=== PATIENT | female | born 1955 | race Caucasian/White ===

== ENCOUNTER 2023-01-30 05:17 | Observation (INO) ==
--- NOTE | 2023-01-11 10:45 | PAT Medication Instructions ---
Medication Instructions Date of Service January 11, 2023 Home Medications cholecalciferol (vitamin D3) 50 mcg (2,000 unit) capsule (Vitamin D3) 50 mcg PO QAM hydrochlorothiazide 25 mg tablet 25 mg PO QAM lactobacillus combination no.4 3 billion cell capsule (Probiotic) 3,000 mmu cells PO HS levothyroxine 200 mcg tablet (Synthroid) 200 mcg PO QAM lisinopril 5 mg tablet 5 mg PO QAM acetaminophen 650 mg tablet,extended release 650 mg PO Q8H PRN amoxicillin 875 mg-potassium clavulanate 125 mg tablet 1 tab PO BID ascorbic acid (vitamin C) 1,000 mg tablet (Vitamin C) 1 g PO QAM cetirizine 5 mg-pseudoephedrine ER 120 mg tablet,extended release,12hr (Zyrtec- D) 1 tab PO Q12H PRN docusate sodium 100 mg capsule (Stool Softener) 100 mg PO BID [id number] 8 mg-folic 400 mcg-K 50 mcg-lutein 300 mcg tablet (Centrum Silver Women) 1 tab PO QAM naproxen sodium 220 mg capsule 440 mg PO Q12H PRN sennosides 8.6 mg capsule (senna) 8.6 mg PO DAILY ASK your surgeon for instructions naproxen sodium 220 mg capsule 440 mg PO Q12H PRN DO NOT take the morning of surgery cholecalciferol (vitamin D3) 50 mcg (2,000 unit) capsule (Vitamin D3) 50 mcg PO QAM hydrochlorothiazide 25 mg tablet 25 mg PO QAM lisinopril 5 mg tablet 5 mg PO QAM ascorbic acid (vitamin C) 1,000 mg tablet (Vitamin C) 1 g PO QAM cetirizine 5 mg-pseudoephedrine ER 120 mg tablet,extended release,12hr (Zyrtec- D) 1 tab PO Q12H PRN docusate sodium 100 mg capsule (Stool Softener) 100 mg PO BID [id number] 8 mg-folic 400 mcg-K 50 mcg-lutein 300 mcg tablet (Centrum Silver Women) 1 tab PO QAM sennosides 8.6 mg capsule (senna) 8.6 mg PO DAILY Take morning of surgery With a small sip of water, OTHERWISE NOTHING TO EAT OR DRINK AFTER MIDNIGHT: levothyroxine 200 mcg tablet (Synthroid) 200 mcg PO QAM acetaminophen 650 mg tablet,extended release 650 mg PO Q8H PRN(if needed) amoxicillin 875 mg-potassium clavulanate 125 mg tablet 1 tab PO BID Take evening before surgery lactobacillus combination no.4 3 billion cell capsule (Probiotic) 3,000 mmu cells PO HS acetaminophen 650 mg tablet,extended release 650 mg PO Q8H PRN(if needed) amoxicillin 875 mg-potassium clavulanate 125 mg tablet 1 tab PO BID cetirizine 5 mg-pseudoephedrine ER 120 mg tablet,extended release,12hr (Zyrtec- D) 1 tab PO Q12H PRN(if needed) docusate sodium 100 mg capsule (Stool Softener) 100 mg PO BID Other Notes If you have any questions please call us at [phone] or [phone] or [phone] or [phone]
--- NOTE | 2023-01-16 11:53 | Anesthesiology Consultation ---
Date of Service January 16, 2023 Assessment & Plan (1) Encounter for pre-operative examination: - Check BSG AM DOS - COVID screening: Per assessment on 01/16/23: No known COVID-19 positive contacts or current COVID-19 related symptoms (chronic sinus issues stable). No recent Covid positive test result. - Outpatient joint assessment: Pt currently scheduled for inpatient pathway. If surgeon requests review for outpatient joint pathway, patient is not recommended candidate for outpatient joint program from anesthesia standpoint pending surgeon's office assessment that patient is motivated, has good support and completes Same Day Joint Program preop requirements. -Cardiology visit (02/10/22): Done prior to 02/22/22 Left TKA done at [facility]: " Pulse 115.. The results of her EKG and subsequent echocardiogram were reviewed with the patient and her at great length today. She was counseled I would place her as a low risk for any adverse perioperative cardiovascular event with the risk being approximately less than 1%. No further cardiac testing intervention would further lower that risk. They both state that they understand, they are accepting of that risk and wished to proceed with surgery. So I see no need to delay from a cardiac standpoint. No cardiac follow-up will be scheduled today but she is welcome return to see us in the future should the need arise." - S/P Left TKA (02/22/22): SAB at L3/4 x1 attempt + PNB at [facility] - S/P hysteroscopy, D&C, removal polyps (06/30/22): LMA at [facility] - RUE limb restriction s/p right breast mastectomy - [facility] General surgery (01/08/23): "Surgery:12/19/2022Mastectomy Simple Complete - Right, Biopsy Lymph Node Deep Axillary Open - Right, and Sentinal Lymph Node Identification, Intraop - Right.. The incision is healing well. The edges seem to be healing without sequelae.. There is no evidence of infection. There is a small central seroma which patient reports has not increased over the last several days. Drain was removed without difficulty.. The patient is concerned about her incision and developing infection. She reports there is little to no output from the drain. The last couple of days have been 5 mL in 24 hours. The drain output has been serosanguineous without evidence of infection. The patient also had concerns about knee pain but reports that her knee looks normal. She is concerned about that left total knee replacement becoming infected. She was therefore placed on Augmentin over the weekend. She has no fever, chills or fatigue or any other complaints consistent with infection." > Patient feeling well after completion of abx. She states she has made surgeon's office aware of the above* Chart Review Chart Review: Acceptable Risk for Surgery and Patient seen in Pre Admission Testing Teaching & Discussion Pre-Anesthesia Teaching/Discussion Notes: Instructed NPO after midnight before surgery,except medications with 15 cc of water. Medication instructions provided according to the PAT guidelines. History Surgery Operation Date: 01/30/23 07:15 Proposed Procedures p Right Total Knee Arthroplasty - Kale Pendleton DO Height/Weight Height: 5 ft 3 in Weight: 114.6 kg Allergies Allergy/AdvReac Type Severity Reaction Status Date / Time sulfamethoxazole Allergy Unknown Hives Verified 01/10/23 15:27 [From Bactrim] trimethoprim [From Bactrim] Allergy Unknown Hives Verified 01/10/23 15:27 doxycycline Allergy Rash Verified 01/10/23 15:27 cefuroxime AdvReac Gastrointestinal Verified 01/10/23 15:27 Upset cephalexin AdvReac Diarrhea Verified 01/10/23 15:27 levofloxacin [From Levaquin] AdvReac Worsening Verified 01/10/23 15:27 Joint Pain Medications Home Medications Medication Instructions Recorded Confirmed Last Taken cholecalciferol (vitamin D3) 50 50 mcg PO QAM 02/08/22 01/10/23 06/02/22 12:00 mcg (2,000 unit) capsule (Vitamin D3) hydrochlorothiazide 25 mg tablet 25 mg PO QAM 02/08/22 01/10/23 06/29/22 11:00 lactobacillus combination no.4 3 3,000 mmu cells PO HS 02/08/22 01/10/23 06/28/22 23:55 billion cell capsule (Probiotic) levothyroxine 200 mcg tablet 200 mcg PO QAM 02/08/22 01/10/23 06/29/22 11:00 (Synthroid) lisinopril 5 mg tablet 5 mg PO QAM 02/08/22 01/10/23 06/29/22 11:00 acetaminophen 650 mg 650 mg PO Q8H PRN Pain 01/10/23 01/10/23 Unknown tablet,extended release amoxicillin 875 mg-potassium 1 tab PO BID 01/10/23 01/10/23 Unknown clavulanate 125 mg tablet ascorbic acid (vitamin C) 1,000 mg 1 g PO QAM 01/10/23 01/10/23 Unknown tablet (Vitamin C) cetirizine 5 mg-pseudoephedrine ER 1 tab PO Q12H PRN Allergy Symptoms 01/10/23 01/10/23 Unknown 120 mg tablet,extended release,12hr (Zyrtec-D) docusate sodium 100 mg capsule 100 mg PO BID 01/10/23 01/10/23 Unknown (Stool Softener) yfbcirfr-vsqc-npzx 8 mg-folic 400 1 tab PO QAM 01/10/23 01/10/23 Unknown mcg-K 50 mcg-lutein 300 mcg tablet (Centrum Silver Women) naproxen sodium 220 mg capsule 440 mg PO Q12H PRN Pain 01/10/23 01/10/23 Unknown sennosides 8.6 mg capsule (senna) 8.6 mg PO DAILY 01/10/23 01/10/23 Unknown Past Medical History Medical History Chronic sinusitis Dry eye Chronic - takes Restasis PRN History of Tolbert's palsy 7 years ago, resolved History of sciatica Hx of breast cancer Dx 10/2022, s/p right breast mastectomy with SNL 11/2022 Hx of cancer of uterus Dx 06/2022, s/p hysterectomy + BSO 08/2022 Hypertension Hypothyroid Limb alert care status RUE Morbid obesity Osteoarthritis Plaque psoriasis Prediabetes HgbA1C 6.0% 05/2022; diet controlled Rheumatoid arthritis Follows currently with PCP Sinus tachycardia "Well controlled"/no recent issues Exercise / Class Metabolic Activity III < 4 Walking/Shop/Light housework Past Family History Family History Son Family history of diabetes mellitus Father Lung cancer Denies family history of Ovarian cancer Prostate cancer Breast cancer Colorectal cancer Past Surgical History Surgical History History of anesthesia reaction "Able to feel tugging" during first cataract surgery, no issue with subsequent cataract surgery History of arthroscopy of left knee History of arthroscopy of right knee History of dilatation and curettage 06/30/22 History of left cataract surgery History of left knee replacement Left TKA (02/22/22): SAB at L3/4 x1 attempt + PNB at [facility] History of right cataract surgery Hx of mastectomy 12/19/22, right breast w/SNL Hx of total hysterectomy with removal of both tubes and ovaries 09/19/22 Past Anesthesia History No Family Hx of Anesthesia Complications and Other ("Able to feel tugging" during first cataract surgery, no issue with subsequent cataract surgery) History of PONV No Hx of PONV and No Hx of Motion Sickness Social History Smoking Status: Never smoker Do You Dip or Chew Tobacco: No Hx Alcohol Use: Yes alcohol intake frequency: holidays/special occasions only Hx Substance Use: No substance use type: does not use Review of Systems Completed antibiotics for recently for right breast mastectomy incision site (S surgeon)- advised to monitor/nothing further needed per surgeon. Chronic sinus issues/drainage with occasional cough r/t to this- no recent changes/stable. Patient denies chest pain, shortness of breath, dyspnea on exertion, fever, chills, wheezing, palpitations. Physical Exam Vital Signs VITALS BP 139/89 P 91 TEMP 98.0 SP02 94%RA RESP 16 PHYSICAL Full cervical extension range of motion. Full TMJ range of motion. TMD 3 finger breaths Mallampati Score 2 Dentition: missing sides Lungs: clear throughout to auscultation Cardiac: regular rate and rhythm, no murmurs noted Spine: normal Carotid arteries: negative bruit Extremities: no LE edema Lab Results Anesthesia Preop Results Results Anesthesia Widget: WBC 5.84 K/ul (4.8-10.8) 01/16/23 Hgb 13.3 g/dl (12.0-16.0) 01/16/23 Hct 40.7 % (37.0-47.0) 01/16/23 Plt 234 K/uL (130-400) 01/16/23 PT 10.8 Seconds (9.0-12.0) 01/16/23 PTT 25.9 Seconds (21.0-31.0) 01/16/23 INR 1.0 (0.9-1.1) 01/16/23 HA1c 6.1 % (4.5-5.6) H 01/16/23 Urine Color Yellow 01/16/23 Urine Appearance Clear (Clear) 01/16/23 Urine pH 7.5 (4.5-7.5) 01/16/23 Urine Specific [place] 1.014 (1.000-1.030) 01/16/23 Urine Protein Negative (Negative) 01/16/23 Urine Glucose (UA) Negative (Negative) 01/16/23 Urine Ketones Negative (Negative) 01/16/23 Urine Blood Negative (Negative) 01/16/23 Urine Nitrite Negative (Negative) 01/16/23 Urine Bilirubin Negative (Negative) 01/16/23 Urine Urobilinogen Negative (Negative) 01/16/23 Urine Leukocyte Esterase Negative (Negative) 01/16/23 Blood Type O Positive 01/16/23 Antibody Screen NEGATIVE 01/16/23 Testing Laboratory Results 12/20/22 SODIUM 141 POTASSIUM 4.3 CHLORIDE 101 CO2 30 BUN 12 CREATININE 0.7 GLUCOSE 153 Electrocardiogram Date: 01/16/23 NSR at 97bpm. Chest X-Ray Date: 02/10/22 Findings: + NAD FINDINGS: Cardiomediastinal and hilar silhouettes are within normal limits. Mild right hemidiaphragmatic elevation. No pneumothorax, pleural effusion, airspace consolidation or overt pulmonary edema. Degenerative changes of the shoulders and spine. Echocardiogram Date: 02/10/22 LVEF 59%. No RWMA. Mild cLVH. Grade I DD. No significant valvular disease. Cervical Spine Date: 06/20/22 FINDINGS: No fracture or subluxation. Alignment remains intact throughout flexion and extension. The C1-C2 interval and prevertebral soft tissues are within normal limits. There are large anterior osteophytes from C3 through C6. Severe disc space narrowing at C6-C7. Mild to moderate disc space narrowing at C5-C6. Moderate facet degenerative changes within the cervical spine. IMPRESSION: 1. Alignment remains intact throughout flexion and extension. 2. Degenerative changes Other Testing US Head/neck Date: 02/14/22 Small, hypovascular, heterogeneous thyroid without nodule.
--- NOTE | 2023-01-17 11:42 | History & Physical Report ---
Date of Service January 17, 2023 date of surgery: 01/30/23 procedure: Right Total Knee Arthroplasty Surgeon: Kale Pendleton Assessment & Plan (1) Arthritis of right knee: Plan: Risk and benefits of the procedure were discussed in detail she has like to proceed with surgical invention. Plan be right total knee arthroplasty, will place on aspirin 81 mg twice a day for 1 month postop DVT prophylaxis. We will plan on discharge home with home health physical therapy, follow-up in the office 2 weeks after surgery or sooner if she is having any issues. She otherwise has no other questions or concerns The risks and benefits have been discussed including, but not limited to, risk of infection, nerve injury, stiffness, loss of motion, failure to improve, etc. Reasonable outcomes and options of treatment were discussed. An explanation of appropriate alternatives to the procedure that may be advantageous were discussed and their risks and benefits, as well as the risks and benefits of not proceeding with treatment. I offered to answer any additional inquiries concerning the treatment involved. All the patient's questions were answered. The patient is agreeable, understanding of the treatment plan and alternatives, and wishes to proceed with the treatment plan. History of Present Illness Chief Complaint: Right knee pain Primary Care Provider: aTmmi Maher MD Cristiana is a pleasant 67-year-old female who presented for preop evaluation prior to right total knee replacement. She has longstanding history of right knee pain which is now affecting her daily activities including walking standing using stairs. She has a history of left total knee arthroplasty and is doing well. She undergone previous injections, she believes cortisone as well as viscosupplementation, she tried oral anti-inflammatories and Tylenol as well. At this point time she would like to proceed with a right total knee arthroplasty Allergies Allergy/AdvReac Type Severity Reaction Status Date / Time sulfamethoxazole Allergy Unknown Hives Verified 01/10/23 15:27 [From Bactrim] trimethoprim [From Bactrim] Allergy Unknown Hives Verified 01/10/23 15:27 doxycycline Allergy Rash Verified 01/10/23 15:27 cefuroxime AdvReac Gastrointestinal Verified 01/10/23 15:27 Upset cephalexin AdvReac Diarrhea Verified 01/10/23 15:27 levofloxacin [From Levaquin] AdvReac Worsening Verified 01/10/23 15:27 Joint Pain Home Medications Medication Instructions Recorded Confirmed Type cholecalciferol (vitamin D3) 50 50 mcg PO QAM 02/08/22 01/10/23 History mcg (2,000 unit) capsule (Vitamin D3) hydrochlorothiazide 25 mg tablet 25 mg PO QAM 02/08/22 01/10/23 History lactobacillus combination no.4 3 3,000 mmu cells PO HS 02/08/22 01/10/23 History billion cell capsule (Probiotic) levothyroxine 200 mcg tablet 200 mcg PO QAM 02/08/22 01/10/23 History (Synthroid) lisinopril 5 mg tablet 5 mg PO QAM 02/08/22 01/10/23 History acetaminophen 650 mg 650 mg PO Q8H PRN Pain 01/10/23 01/10/23 History tablet,extended release amoxicillin 875 mg-potassium 1 tab PO BID 01/10/23 01/10/23 History clavulanate 125 mg tablet ascorbic acid (vitamin C) 1,000 mg 1 g PO QAM 01/10/23 01/10/23 History tablet (Vitamin C) cetirizine 5 mg-pseudoephedrine ER 1 tab PO Q12H PRN Allergy Symptoms 01/10/23 01/10/23 History 120 mg tablet,extended release,12hr (Zyrtec-D) docusate sodium 100 mg capsule 100 mg PO BID 01/10/23 01/10/23 History (Stool Softener) labzwfsv-hice-kkju 8 mg-folic 400 1 tab PO QAM 01/10/23 01/10/23 History mcg-K 50 mcg-lutein 300 mcg tablet (Centrum Silver Women) naproxen sodium 220 mg capsule 440 mg PO Q12H PRN Pain 01/10/23 01/10/23 History sennosides 8.6 mg capsule (senna) 8.6 mg PO DAILY 01/10/23 01/10/23 History Past Med/Surg History Medical History Chronic sinusitis Dry eye Chronic - takes Restasis PRN History of Tolbert's palsy 7 years ago, resolved History of sciatica Hx of breast cancer Dx 10/2022, s/p right breast mastectomy with SNL 11/2022 Hx of cancer of uterus Dx 06/2022, s/p hysterectomy + BSO 08/2022 Hypertension Hypothyroid Limb alert care status RUE Morbid obesity Osteoarthritis Plaque psoriasis Prediabetes HgbA1C 6.0% 05/2022; diet controlled Rheumatoid arthritis Follows currently with PCP Sinus tachycardia "Well controlled"/no recent issues Surgical History History of anesthesia reaction "Able to feel tugging" during first cataract surgery, no issue with subsequent cataract surgery History of arthroscopy of left knee History of arthroscopy of right knee History of dilatation and curettage 06/30/22 History of left cataract surgery History of left knee replacement Left TKA (02/22/22): SAB at L3/4 x1 attempt + PNB at [facility] [place] History of right cataract surgery Hx of mastectomy 12/19/22, right breast w/SNL Hx of total hysterectomy with removal of both tubes and ovaries 09/19/22 Family History Son Family history of diabetes mellitus Father Lung cancer Denies family history of Ovarian cancer Prostate cancer Breast cancer Colorectal cancer Social History Smoking Status: Never smoker Second Hand Exposure: Yes (hx as child); Do You Dip or Chew Tobacco: No; Hx Alcohol Use: Yes Hx Substance Use: No Preferred Language: Arabic Communication Ability: Effective Family Service Caseworker Required: No Beliefs That Will Affect Care: None marital status: Current Living Situation: Spouse Feels Safe at Home: Yes Assistive Devices: Glasses Review of Systems Review of Systems: All systems reviewed & are unremarkable except as noted in HPI & below Constitutional: no fever, no chills and no sweats Respiratory: no cough and no dyspnea Cardiovascular: no chest pain, no dyspnea and no orthopnea Gastrointestinal: no abdominal pain, no nausea and no vomiting Musculoskeletal: as per Subjective / HPI Physical Exam Physical Exam: HT: 5ft 3in WT: 114.6 kg Constitutional: WD/WN, vitals as above no acute distress Respiratory: normal respiratory effort, lungs clear to auscultation no respiratory distress, no labored breathing and does not use accessory muscles Cardiovascular: RRR, no murmur, no edema Gastrointestinal (Abdomen): normal bowel sounds, soft, nontender, no hepatosplenomegaly Musculoskeletal: Knee: + knee abnormal to inspection (RIGHT KNEE:), + effusion (+1 effusion), + limited ROM of knee (ROM 0/3/110), + knee ROM with crepitation, + joint line tenderness (medial joint line) and + Segundo's sign positive; no deformity, no skin erythema, no ecchymosis, no valgus laxity, no varus laxity, anterior drawer test negative, Bo's sign negative and pivot shift test negative Results & Data Results & Data Diagnostic Findings Right Knee X-ray: Right knee series showing advanced degenerative changes to the right knee, narrowing of the medial compartment and patello-femoral joint with patellar spurring noted, findings showing joint space narrowing of the medial compartment and patello-femoral joint, osteophyte formation and subchondral sclerosis noted. overall varus alignment. no acute bony pathology noted.
[2023-01-30] MEDS ORDERED: CeleBREX 200 MG CAP PO SCH (06:00)
[2023-01-30] MEDS ORDERED: ROPIVACAINE 0.5% HCL/PF 150 MG, BUPIVACAINE 0.75% MPF 20 ML, EPINEPHrine 30MG/30ML (OR ... INSTIL SCH (06:00)
[2023-01-30] MEDS ORDERED: ceFAZolin 2000MG 2,000 MG/15 ML SYR IV SCH (06:00)
[2023-01-30] MEDS ORDERED: LR 60ML/HR IV SCH (06:00)
[2023-01-30] MEDS ORDERED: dexAMETHasone 4 MG TAB PO SCH (06:00)
[2023-01-30] MEDS ORDERED: TRANEXAMIC ACID 1,000 MG **IV Pre-op IV SCH (06:00)
[2023-01-30] MEDS ORDERED: METOCLOPRAMIDE HCL 10 MG TABLET PO SCH (06:00)
[2023-01-30] MEDS ORDERED: FAMOTIDINE 20 MG TAB PO SCH (06:00)
[2023-01-30] MEDS ORDERED: LR 500ML BOLUS, THEN 15ML/HR IV SCH (06:00)
[2023-01-30] MEDS ORDERED: TRANEXAMIC ACID 1,000 MG **IV Intra-op IV SCH (06:00)
[2023-01-30] MEDS ORDERED: ACETAMINOPHEN 500 MG TAB PO SCH (06:00)
[2023-01-30] MEDS ORDERED: GABAPENTIN 300 MG CAP PO SCH (06:00)
[2023-01-30] MEDS ORDERED: BUPIVACAINE 0.5 % 5 MG/1 ML PF 10ML VIAL ONE (06:22)
[2023-01-30] MEDS ORDERED: ROPIVACAINE 0.5% 5 MG/ML 30 ML VIAL ONE (06:22)
[2023-01-30] MEDS ORDERED: LIDOCAINE 2% 2 ML VIAL/AMP(20MG/ML) INFIL ONE (06:32)
[2023-01-30] MEDS ORDERED: MIDAZOLAM HCL 1 MG/ML 2ML VIAL ONE ×2 (06:32)
[2023-01-30] MEDS ORDERED: PROPOFOL IV EMULSION 10 MG/ML 20 ML VIAL IV ONE (06:32)
[2023-01-30] MEDS ORDERED: ATROPINE SULFATE 0.1 MG/ML 10ML SYR IV PRN (06:38)
[2023-01-30] MEDS ORDERED: fentaNYL citrate PF 100 MCG/2 ML VIAL IV PRN (06:38)
[2023-01-30] MEDS ORDERED: ePHEDrine sulfate 50 MG/ML AMP IV PRN (06:38)
[2023-01-30] MEDS ORDERED: ONDANSETRON INJ 2 MG/ML 2 ML VIAL IV PRN ×2 (06:38→10:27)
[2023-01-30] MEDS ORDERED: ORTHO JOINT ANESTHETIC ONE (06:39)
--- NOTE | 2023-01-30 07:26 | History & Physical Bridge Note ---
Date of Service January 30, 2023 History & Physical Bridge Note I have examined the patient, reviewed the History & Physical and in the interval since the performance of the History & Physical I have noted the following changes of clinical significance: no changes noted
[2023-01-30] MEDS ORDERED: KETAMINE 50 MG/5 ML SYRINGE ONE (07:57)
--- NOTE | 2023-01-30 08:51 | Operative Report ---
Post Operative Report Pre & Post Diagnosis Operation Date: 01/30/23 07:00 Pre-Op Diagnosis: Osteoarthritis Knee Right Post-Op Diagnosis: Osteoarthritis Knee Right I identified the patient and participated in the time-out.: Yes Procedure Operation Date: 01/30/23 07:00 Actual Procedures p Right Total Knee Arthroplasty(Right) utilizing \6 [employer]me[employer] Neph[employer]Household journey 2 patient-matched total knee arthroplasty size femur 4 tibia 3 patella 10 poly 10 patella 29 nasima Pendleton DO Surgeon Kale Pendleton DO Family Partner wolfgang Montano Estimated Blood Loss 5 Findings Consistent with Post-Op Diagnosis Patient presents with severe end-stage tricompartmental degenerative joint disease eburnated [id number] marginal osteophytes varus alignment subchondral sclerosis moderate to large effusion Specimens Bone and cartilage Drains Medium bore Hemovac Anesthesia Type MAC Spinal Regional Complications none Disposition Accompanied Patient To Recovery: No Disposition: Recovery Room Indications Patient patient presents with severe end-stage DJD having failed attempted conservative management occluding physical therapy anti-inflammatories relative rest activity modification corticosteroid injection viscosupplementation the above intraoperative findings were noted Description of Procedure After proper prepping and draping of the Right lower extremity anterior midline incision was made over the region of the extensor extensor mechanism after meticulous hemostasis was obtained and maintained in subcutaneous tissues a medial parapatellar incision was made The patella was subluxed lateralward the medial lateral gutter were cleaned from any hypertrophic synovitis and scar tissue of the distal femoral block was placed and the distal femoral osteotomy cut was made subsequently the chamfers anterior and posterior osteotomy cuts were made utilizing the 4-in-1 block the tibia was subsequently subluxed anteriorward medial and ateral meniscal remnants were excised in their entirety remnants of the anterior and posterior cruciate ligaments were excised in their entirety excellent exposure of the proximal tibia was obtained the tibial osteotomy guide was placed on the proximal tibial osteotomy cut was made once again the knee was irrigated with copious amounts of sterile saline solution the patella was subsequently everted lateralward thickened scar tissue around the patella was removed the patella was subsequently cut utilizing a freehand technique and was drilled prepared for final preparation and placement of patella socially flexion-extension gaps were checked and the equal and symmetric trials were placed to the appropriate femoral and tibial trials with poly-spacer being placed for equal flexion and extension gaps and full range of motion including extension to 0 and flexion to 140 the trial components after having been taken to recovery range of motion was subsequently removed meticulous hemostasis was obtained and maintained subsequently a knee block injection of joint cocktail including ropivacaine 0.5% 150 mg. Bupivacaine 0.5% epinephrine 1-200,030 mL's toradol 30 mg dexamethasone 4 mg ketamine 10 mg clonidine 100 micrograms normal saline solution 30 mg was infiltrated into the soft tissues of the posterior knee medial lateral gutters and periosteal synovium special attention was paid to protect neurovascular structures at all times subsequently trial components having been removed the knee was irrigated with sterile saline solution. debris was removed the proximal tibia was subsequently prepared and was made ready for the placement of the tibial component tibial component was also cemented and tamped into position the femoral component was subsequently placed and cemented in the position the patellar component was subsequently cemented in position because hemostasis once again obtained and maintained wound having been thoroughly irrigated with debridement and debridement lavage was performed as well as a medial parapatellar incision closed with #1 Vicryl in interrupted fashion subcutaneous was closed with #2 Vicryl skin was closed with skin clips. PA-C was necessary for prepping and drapping as well as wound closure of deep fascia Sub cutaneous tissue and skin and was necessary for the case. A sterile compressive dressing was placed patient was taken to recovery in stable condition of report dictated by Helder I attest to the content of the Intraoperative Record and any orders documented therein. Any exceptions are noted below.Due to the complex nature of the procedure, the entire surgery was performed with the operational assistance of Wolfgang ALATORRE. The clinic office assistant, under direct supervision, was involved in the actual performance of all aspects of the surgical procedure including hemostasis, tissue retraction and incision, instrument management, patient positioning, and wound closure. I attest to the content of the Intraoperative Record and any orders documented therein. Any exceptions are noted below.
--- NOTE | 2023-01-30 10:02 | XRay Report ---
XR knee RT 1 or 2V routine HISTORY: 67 years-old Female Surgical Post Op right knee arthroplasty COMPARISON: None TECHNIQUE: 2 views of the right knee FINDINGS: Total joint arthroplasty with patellar resurfacing. Surgical drainage catheter is in place along with expected postoperative soft tissue swelling with deep tissue air. No acute fracture or unexpected op aque foreign body. IMPRESSION: Total joint arthroplasty with expected postoperative changes. ACT 112: Negative or not required by law. The above report was generated using voice recognition software. It may contain grammatical, syntax o r spelling errors. Electronically signed by: Jarad Christianson M.D. 01/30/2023 10:01 AM
--- NOTE | 2023-01-30 10:22 | Anesthesiology Progress Note ---
Date of Service January 30, 2023 Anesthesia Post Procedure Vital Signs Vital Signs: Temp Pulse Pulse Resp BP Pulse Ox O2 Del Method 01/30/23 09:50 111 H 14 165/99 H 94 Nasal Cannula 01/30/23 09:40 104 H 14 152/91 H 97 Nasal Cannula 01/30/23 10:00 97.7 F 105 H 14 135/81 94 Nasal Cannula 01/30/23 09:35 157/86 H 01/30/23 09:30 107 H 14 168/84 H 97 Oxymask 01/30/23 09:20 97.9 F 119 H 16 144/68 H 96 Oxymask 01/30/23 05:40 97.5 F L 128 H 20 177/95 H 93 Room Air O2 Flow Rate 01/30/23 09:50 2 01/30/23 09:40 3 01/30/23 10:00 2 01/30/23 09:35 01/30/23 09:30 12 01/30/23 09:20 12 01/30/23 05:40 Transfer of Care Handoff Completed per policy Notes Mental Status: alert / awake / arousable and participated in evaluation Patient Amnestic to Procedure: Yes Nausea / Vomiting: adequately controlled Pain: adequately controlled Airway Patency, RR, SpO2: stable & adequate BP & HR: stable & adequate Hydration State: stable & adequate Neuraxial Anesthesia: was administered and sensory block is resolving Anesthetic Complications: no major complications apparent and Pt Satisfied with anesthetic care
[2023-01-30] MEDS ORDERED: MAGNESIUM HYDROXIDE SUSP 30 ML UDC PO PRN (10:27)
[2023-01-30] MEDS ORDERED: bisacodyL 10 MG SUPP PR PRN (10:27)
[2023-01-30] MEDS ORDERED: CETIRIZINE PSEUDOEPHEDRINE PO PRN (10:27)
[2023-01-30] MEDS ORDERED: NALOXONE HCL 0.4 MG/1 ML VIAL/CARP IV PRN (10:27)
[2023-01-30] MEDS ORDERED: HYDROmorphone INJ 0.5 MG/0.5 ML SYR IV PRN (10:27)
[2023-01-30] MEDS ORDERED: diphenhydrAMINE 50 MG/ML VIAL IV PRN (10:27)
[2023-01-30] MEDS: SODIUM CHLORIDE 0.9% 1,000 ML IV SCH (11:01)
[2023-01-30] MEDS: KETOROLAC TROMETHAMINE 15 MG/ML VIAL IV SCH ×2 (11:02→17:04)
[2023-01-30] MEDS: ACETAMINOPHEN 500 MG TAB PO SCH ×2 (13:37→21:19)
[2023-01-30] MEDS: oxyCODONE HCL IR 5 MG TAB (IMMEDIATE RELEASE) PO PRN ×2 (14:22→20:55)
[2023-01-30] MEDS: ceFAZolin 2000MG 2,000 MG/15 ML SYR IV SCH (15:05)
[2023-01-30] MEDS: ASPIRIN 81 MG ECTAB PO SCH (20:55)
[2023-01-30] MEDS: DOCUSATE SODIUM 100 MG CAP PO SCH (20:57)
[2023-01-30] MEDS ORDERED: ADVANCED PROBIOTIC 1250 MG CAPSULE PO SCH (21:00)
[2023-01-30] MEDS ORDERED: SENNA 8.6 MG TAB PO SCH (21:00)
[2023-01-31] MEDS: KETOROLAC TROMETHAMINE 15 MG/ML VIAL IV SCH ×2 (00:49→06:33)
[2023-01-31] MEDS: ceFAZolin 2000MG 2,000 MG/15 ML SYR IV SCH (00:51)
[2023-01-31] MEDS: SODIUM CHLORIDE 0.9% 1,000 ML IV SCH (01:58)
[2023-01-31] MEDS ORDERED: Nursing to Pharmacy Communication SCH (02:00)
[2023-01-31] MEDS: oxyCODONE HCL IR 5 MG TAB (IMMEDIATE RELEASE) PO PRN ×3 (02:51→12:06)
[2023-01-31] MEDS: ACETAMINOPHEN 500 MG TAB PO SCH (05:53)
[2023-01-31] MEDS ORDERED: LEVOTHYROXINE SODIUM 200 MCG TABLET PO SCH (06:30)
--- NOTE | 2023-01-31 06:58 | Orthopedic Progress Note ---
Date of Service January 31, 2023 Assessment & Plan (1) Arthritis of right knee: Plan: Postop day 1 status post right total knee arthroplasty PT/OT protocols. Weightbearing as tolerated. DVT prophylaxis-aspirin p.o. twice daily, SCDs, STEPHANIE harry. Pain management as written. Tachycardia-likely secondary to whitecoat syndrome of which she has had previously. If her heart rate continues to maintain in the 120s or 130s, consider hospitalist consult. Patient states that her heart rate usually tends to start coming down after her surgery. Labs pending. DC planning-patient is planning for home health services upon discharge. We will likely plan to send her home with her drain and have home health services remove drain tomorrow. We will review labs when available. We will have to follow her vital signs for now and plan discharge to home if remaining stable today. Admission and Anticipated Discharge Date Admission Date: January 30, 2023 Subjective Postop day 1 Patient sitting up in bed awake and alert. No complaints this morning. She states she feels well. Pain is controlled. Denies shortness of breath, chest pain, lightheadedness. We discussed that she has been somewhat tachycardic during her whole stay. Patient states that she which she describes as white coat syndrome when she goes to the physician's office and or whenever she is having surgery. She has had a complete work-up in the past including EKG and echocardiogram which has been normal. Her normal at home was around 80s to 90s. Currently her heart rate is coming down from where it was previously and it was 105 very early this morning. Physical Exam Physical Exam: Dressings are clean, dry, and intact. Calves are soft nontender. Neurovascular intact. Toes are mobile. She is good dorsiflexion and plantarflexion of the right foot. Hemovac drainage was 150 mL in the previous emptying. Results & Data Vital Signs (Past 12 Hours) Vital Signs Temp Pulse Resp BP Pulse Ox O2 Del Method 01/31/23 02:52 36.7 C 105 H 16 148/85 H 94 Room Air 01/30/23 21:00 Room Air 01/30/23 22:55 36.7 C 104 H 16 122/76 95 Room Air 01/30/23 19:51 36.7 C 125 H 18 136/81 95 Room Air
[2023-01-31] MEDS: ASPIRIN 81 MG ECTAB PO SCH (07:31)
[2023-01-31] MEDS: DOCUSATE SODIUM 100 MG CAP PO SCH (07:31)
[2023-01-31] MEDS ORDERED: ASCORBIC ACID 500 MG TAB PO SCH (09:00)
[2023-01-31] MEDS ORDERED: CHOLECALCIFEROL 1,000 UNITS 25 MCG TAB PO SCH (09:00)
[2023-01-31] MEDS ORDERED: lisinopril 5 MG TAB PO SCH (09:00)
[2023-01-31] MEDS ORDERED: MULTIVITAMIN TAB PO SCH (09:00)
[2023-01-31] MEDS ORDERED: hydroCHLOROthiazide 25 MG TAB PO SCH (09:00)
[2023-01-31 09:11] LABS: BUN Creatinine Ratio 25.3 (10-20); Calcium 8.9 mg/dl (8.6-10.3); Est GFR (African American) 85.2 ml/min; Est GFR (Non-African American) 73.5 ml/min; Potassium 3.8 mmol/L (3.5-5.1)
[2023-01-31 09:19] LABS: Hemoglobin 12.4 g/dl (12.0-16.0); Mean Corpuscular Hemoglobin 25.4 pg (25.0-34.0); Mean Corpuscular Hgb Conc 32.6 g/dL (32.0-36.0); Mean Corpuscular Volume 77.7 fL (80.0-100.0); Mean Platelet Volume 9.7 fL (9.4-12.4); Platelet Count 285 K/uL (130-400); RDW Coefficient of Variation 15.4 % (11.5-14.5); RDW Standard Deviation 43.3 fL (36.4-46.3); Red Blood Count 4.89 M/uL (4.20-5.40); White Blood Count 14.83 K/ul (4.8-10.8)
--- NOTE | 2023-02-05 18:51 | Discharge Summary ---
Date of Service February 05, 2023 Admission HPI Per Admitting Provider Cristiana is a pleasant 67-year-old female who presented for preop evaluation prior to right total knee replacement. She has longstanding history of right knee pain which is now affecting her daily activities including walking standing using stairs. She has a history of left total knee arthroplasty and is doing well. She undergone previous injections, she believes cortisone as well as viscosupplementation, she tried oral anti-inflammatories and Tylenol as well. At this point time she would like to proceed with a right total knee arthroplasty Admission Exam Per Admitting Provider Physical Exam: HT: 5ft 3in WT: 114.6 kg Constitutional: WD/WN, vitals as above no acute distress Respiratory: normal respiratory effort, lungs clear to auscultation no respiratory distress, no labored breathing and does not use accessory muscles Cardiovascular: RRR, no murmur, no edema Gastrointestinal (Abdomen): normal bowel sounds, soft, nontender, no hepatosplenomegaly Musculoskeletal: Knee: + knee abnormal to inspection (RIGHT KNEE:), + effusion (+1 effusion), + limited ROM of knee (ROM 0/3/110), + knee ROM with crepitation, + joint line tenderness (medial joint line) and + Segundo's sign positive; no deformity, no skin erythema, no ecchymosis, no valgus laxity, no varus laxity, anterior drawer test negative, Bo's sign negative and pivot shift test negative Principal Diagnosis Right knee osteoarthritis Discharge Data Allergies Allergy/AdvReac Type Severity Reaction Status Date / Time sulfamethoxazole Allergy Unknown Hives Verified 01/30/23 05:38 [From Bactrim] trimethoprim [From Bactrim] Allergy Unknown Hives Verified 01/30/23 05:38 doxycycline Allergy Rash Verified 01/30/23 05:38 cefuroxime AdvReac Gastrointestinal Verified 01/30/23 05:38 Upset cephalexin AdvReac Diarrhea Verified 01/30/23 05:38 levofloxacin [From Levaquin] AdvReac Worsening Verified 01/30/23 05:38 Joint Pain Procedures Performed Operation Date: 01/30/23 07:00 Actual Procedures p Right Total Knee Arthroplasty(Right) - Kale Pendleton DO Ordered Studies 01/30/23 05:00 US - OR guided needle placemen Routine Hospital Course (1) Arthritis of right knee: Patient:CRISTIANA EL Admit Date:01/30/23 MR#:[id number] Att Phy:Kale Pendleton D.O. Acct ID:[id number] Alyssa Phy:Tabatha Sepulveda PA-C Date:1955 Fam Phy: Age:67 Location:3E Sex:F Room/Bed:[facility] cc: ~ *NOTICE TO RECEIVING REPUBLICAN/AGENCY This information is strictly Confidential and protected under [place] law. [place] law prohibits you from making any further disclosure of this information unless further disclosure is expressly permitted by the written consent of the person to whom it pertains or is authorized by law. A general authorization for the release of medical or other information is not sufficient for this purpose. Hospital accepts no responsibility if the information is made available to any other person, INCLUDING THE PATIENT. Date of Service January 31, 2023 Assessment & Plan (1) Arthritis of right knee: Plan: Postop day 1 status post right total knee arthroplasty PT/OT protocols. Weightbearing as tolerated. DVT prophylaxis-aspirin p.o. twice daily, SCDs, STEPHANIE harry. Pain management as written. Tachycardia-likely secondary to whitecoat syndrome of which she has had previously. If her heart rate continues to maintain in the 120s or 130s, consider hospitalist consult. Patient states that her heart rate usually tends to start coming down after her surgery. Labs pending. DC planning-patient is planning for home health services upon discharge. We will likely plan to send her home with her drain and have home health services remove drain tomorrow. We will review labs when available. We will have to follow her vital signs for now and plan discharge to home if remaining stable today. Admission and Anticipated Discharge Date Admission Date: January 30, 2023 Subjective Postop day 1 Patient sitting up in bed awake and alert. No complaints this morning. She states she feels well. Pain is controlled. Denies shortness of breath, chest pain, lightheadedness. We discussed that she has been somewhat tachycardic during her whole stay. Patient states that she which she describes as white coat syndrome when she goes to the physician's office and or whenever she is having surgery. She has had a complete work-up in the past including EKG and echocardiogram which has been normal. Her normal at home was around 80s to 90 s. Currently her heart rate is coming down from where it was previously and it was 105 very early this morning. Physical Exam Physical Exam:M Dressings are clean, dry, and intact. Calves are soft nontender. Neurovascular intact. Toes are mobile. She is good dorsiflexion and plantarflexion of the right foot. Hemovac drainage was 150 mL in the previous emptying. Results & Data Vital Signs (Past 12 Hours) Vital Signs Temp Pulse Resp BP Pulse Ox O2 Del Method C 01/31/23 02:52 36.7 C 105 H 16 148/85 H 94 Room Air 01/30/23 21:00 Room Air 01/30/23 22:55 36.7 C 104 H 16 122/76 95 Room Air 01/30/23 19:51 36.7 C 125 H 18 136/81 95 Room Air Signed By: <Electronically signed by Karl Leger MD> 01/31/23 0705 <Electronically signed by Wolfgang Whitley PA-C> 01/31/23 0657 Total Time Total Time Spent Total Time Spent (In Minutes): 5 Discharge Plan Discharge Items Patient Disposition: Home - Home Health Services Reason For Visit: Osteoarthritis Knee Right Discharge Diagnosis: Osteoarthritis right knee Activity: Per Instructions section Weightbearing: Full weightbearing Non-emergency contact: Surgeon Call non-emergency contact if: you have any medication questions, your pain is not controlled, your temperature is above 101.5, your wound has increased redness and your wound has increased drainage Follow-up/Referrals: Kale Pendleton, [Surgeon] - ( follow-up with Dr. Pendleton in 2 weeks from the day of surgery for your first postoperative appointment.) Tabatha Sepulveda PA-C [Primary Care Provider] - Addtl Attending Provider Instructions: ACTIVITY RECOMMENDATIONS: SELF CARE INSTRUCTIONS AFTER TOTAL KNEE REPLACEMENT A. You may need to continue a physical therapy program after discharge from the hospital. There are several options available to you. Your doctor will assist you in selecting the best one for you. 1. An out-patient facility 2 to 3 times a week for therapy or home therapy. 2. Continue working on all exercises taught to you in the hospital. Your goals should be to increase bending of your knee to 90 degrees and beyond and to fully straighten your knee. B. You may progress at your own pace from walking with a walker or crutches to a cane; then to no assistive devices. C. Make walking a part of your daily routine. Be up as much as comfortable with rest periods throughout the day. Rest with leg elevation is very important. Use the ice wrap frequently for the first 3-4 weeks. D. There are no restrictions on activities. You may ride in a car, shop, participate in shopper and all social activities. E. Wear the long elastic stockings (STEPHANIE hose) 20 hours a day for 2 weeks after surgery. They can be removed several times a day for laundering and for a bath. F. You may shower, no tub baths until cleared by your doctor. SPECIAL CARE INSTRUCTIONS: VERY IMPORTANT TO READ AND REVIEW A. There are a few signs you need to watch for after you are home. Call [facility] if you notice any of the followin. Increased severe knee pain. Some pain is expected especially when you exercise. 2. Increased swelling in your leg or knee; pain or swelling of the calf muscle in either lower leg. 3. Any fluid drainage from the incision. 4. Shortness of breath or chest pain. B. Please call [facility] at if you have any concerns or questions about your operation or recovery. The doctor or his nurse will return your call promptly. C. You must take antibiotics before dental work, bladder, bowel or other s urgery. Your doctor will provide you with a permanent care to carry describing this precaution. IMPORTANT: * REMEMBER TO TAKE ASPIRIN, 81 MG, TWICE DAILY FOR 4 WEEKS UNLESS OTHERWISE DIRECTED. THIS IS YOUR BLOOD THINNER. * CALL IF INCREASED PAIN, REDNESS, DRAINAGE OR FEVER GREATER THAT 101. * WEAR STEPHANIE HOSE 20 HOURS PER DAY FOR 2 WEEKS. * GAYATRI Dressing - This is a large suction dressing covering your incision. This will help pull any excess drainage from the wound and allow your incision to heal properly. You may shower with this if you can keep the unit outside of the shower. If any bleeding or leakage is noted please call your doctor's office. This will remain on your incision for 7 days and then should be removed. This can be done yourself or by the home nursing staff if applicable. The entire unit is disposable once removed. Once removed, keep incision clean and dry. If redness or drainage is noted, please call your surgeon. . Once your gayatri dressing has been removed, follow wound care instructions below. * DERMABOND Prineo- This is a mesh tape dressing that is covered with glue. It should remain in place until the incision is properly healed, usually 10-14 days. This dressing is designed to naturally slough off. You may trim the excess mesh tape as it peels off. Incision may be briefly wet in a shower. Dry immediately by blotting with a clean, dry towel. Do not bath or swim until instructed by your doctor. Do not scratch, rub, or pick at the dressing. Do not apply any topical ointments or lotions until dressing is completely removed and/or instructed by your doctor. There may be a small piece of suture material at one end of your incision. Do not pull or trim this. If it is bothersome or catching on clothing, you may cover it with a band-aid. FOLLOW UP VISIT: If appointment is not already scheduled: Please call [facility] to make a follow-up appointment for 2 weeks after your surgery at . Stand-Alone Forms: My [facility] 4-Tell, Smoking Cessation Medications and DC Order Prescriptions: New aspirin [Ecotrin Low Strength] 81 mg tablet,delayed release (DR/EC) 81 mg PO BID 30 Days Qty: 60 0RF acetaminophen 500 mg capsule 1,000 mg PO Q8H 14 Days Qty: 84 0RF polyethylene glycol 3350 [Miralax] 17 gram powder in packet 17 g PO DAILY PRN (Reason: constipation) Qty: 5 0RF oxycodone 5 mg tablet 5 mg PO Q4H MDD 6 PRN (Reason: pain) Qty: 30 0RF Continued cetirizine-pseudoephedrine [Zyrtec-D] 5-120 mg Tablet Extended Release 12 Hr 1 tab PO Q12H PRN (Reason: Allergy Symptoms) ascorbic acid (vitamin C) [Vitamin C] 1,000 mg Tablet 1 g PO QAM docusate sodium [Stool Softener] 100 mg Capsule 100 mg PO BID senna 8.6 mg Capsule 8.6 mg PO DAILY Centrum Silver Women 8 mg iron-400 mcg-50 mcg Tablet 1 tab PO QAM levothyroxine [Synthroid] 200 mcg Tablet 200 mcg PO QAM lisinopril 5 mg Tablet 5 mg PO QAM hydrochlorothiazide 25 mg Tablet 25 mg PO QAM cholecalciferol (vitamin D3) [Vitamin D3] 50 mcg (2,000 unit) Capsule 50 mcg PO QAM Probiotic 3 billion cell Capsule 3,000 mmu cells PO HS Patient Comments: 60 billion cells Rx Instructions: administer with a meal Discontinued acetaminophen 650 mg Tablet Extended Release 650 mg PO Q8H PRN (Reason: Pain) naproxen sodium 220 mg Capsule 440 mg PO Q12H PRN (Reason: Pain) Admission Data Admit Date/Time: 01/30/23 09:25 Attending Provider: Kale Pendleton Admit Provider: Kale Pendleton Primary Care Provider: Tabatha Sepulveda Other Interventions: Discharge Summary Assessment (RN) Last Done: 01/31/23 11:59
== END 2023-01-31 12:59 | disposition home health service (06) ==
LOC: ASU 05:17 → 3E 05:17